=== PATIENT | male | born 1960 ===

== ENCOUNTER 2019-04-09 06:09 | Inpatient (IN) | payer OTHER ==
[2019-04-06 15:17] VITALS: BMI 25.8
[2019-04-09] MEDS ORDERED: BUPIVACAINE LIPOSOME/PF (EXPAREL) 266 MG/20 ML VIAL ONE ×2 (07:28→08:07)
[2019-04-09] MEDS ORDERED: THROMBIN (BOVINE) 5,000 UNIT VIAL TP ONE ×2 (07:29→11:51)
[2019-04-09] MEDS ORDERED: HEPARIN NA (PORCINE) 5,000 UNITS/ML 1ML VIAL ONE (07:29)
[2019-04-09] MEDS ORDERED: BENZOIN TINCTURE SWABSTICK TP ONE (07:29)
[2019-04-09] MEDS ORDERED: PROPOFOL 20 ML ONE ×8 (07:45→10:11)
[2019-04-09] MEDS ORDERED: MIDAZOLAM HCL 2 MG/2 ML SINGLE DOSE VIAL ONE ×2 (07:46)
[2019-04-09] MEDS ORDERED: KETAMINE HCL 200 MG/20 ML VIAL ONE (07:46)
[2019-04-09] MEDS ORDERED: SUCCINYLCHOLINE CHLORIDE 200 MG/10 ML SYRINGE ONE (07:50)
[2019-04-09] MEDS ORDERED: BUPIVACAINE HCL/PF 0.5% (5 MG/ML) 30 ML VIAL IJ ONE (08:07)
[2019-04-09] MEDS ORDERED: VANCOMYCIN 1,000 MG VIAL (RESTRICTED TO ID ONLY) ONE (08:49)
[2019-04-09] MEDS ORDERED: VANCOMYCIN 1,000 MG VIAL (RESTRICTED TO ID ONLY) IVPB ONE (09:00)
[2019-04-09] MEDS ORDERED: ceFAZolin SODIUM 1 GM VIAL IVPB ONE (09:30)
[2019-04-09] MEDS ORDERED: ROCURONIUM BROMIDE 50 MG/5 ML SYRINGE ONE (09:32)
[2019-04-09] MEDS ORDERED: TRANEXAMIC ACID 1000 MG/10 ML VIAL ONE ×2 (09:37→11:09)
[2019-04-09] MEDS ORDERED: NEOSTIGMINE METHYLSULFATE 0.5 MG/1 ML - 10 ML MDV ONE (10:26)
[2019-04-09] MEDS ORDERED: GLYCOPYRROLATE 0.2 MG/1 ML VIAL ONE (10:26)
[2019-04-09] MEDS ORDERED: HYDROmorphone HCl 2 MG/ML VIAL ONE (11:04)
[2019-04-09] MEDS ORDERED: DEXAMETHASONE SOD PHOSPHATE 4 MG/1 ML VIAL ONE (11:31)
[2019-04-09] MEDS ORDERED: ONDANSETRON 4 MG/2 ML VIAL ONE (11:31)
[2019-04-09] MEDS ORDERED: HEPARIN NA (PORCINE) 5,000 UNITS/ML 1ML VIAL SQ ONE (11:47)
[2019-04-09] MEDS ORDERED: GELATIN, ABSORBABLE 100 EACH SPONGE TP ONE (11:53)
--- NOTE | 2019-04-09 12:12 | PN ---
Progress Note (short form) - Note Progress Note: 58M s/p L4 bilateral laminectomies, bilateral L4/L5 facetectomies, L4-L5 PLIF & posterior instrumented spinal fusion POD #0. -Admit to ICU post-op. -Pain control: NO NSAID's; patient received pre-op TLIP block w/Exparel; OK to use AIR/OCEAN EXPORT CLERK if needed; transition to oral analgesia post-op. -DVT PPx: -Mechanical only: ASHWIN's, SCD's. -Chemical: None. -Incentive spirometry q15 min. -NPO until flatus. -Vinson care; d/c when ambulating. -Post-op Ancef x 3 doses. -PT/OT/Rehab, OOB. -WBAT B/L LE. -No bending, lifting (>5 lbs), or twisting for 9-12 months. -Care per ICU & medical hospitalist teams. -Discharge planning: f/u 7-10 days after rehab discharge at [facility] office; call for appointment; . -Will follow. Abdoul Asencio MD (Orthopaedic Surgery).
--- NOTE | 2019-04-09 12:18 | OP ---
Operative Note - Note: Operative Date: 04/09/19 Pre-Operative Diagnosis: 1. 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 2. L4-L5 spinal stenosis with neurogenic claudication. 3. Axial instability lumbar spine. SEVERITY OF ILLNESS: 4. Operation: 1. L4 Bilateral laminectomies. 2. Bilateral L4/L5 facetectomies. 3. L4-L5 PLIF & posterior instrumentation. 4. L4-L5 posterior arthrodesis. 5. Bone autograft. 6. Bone allograft. 7. Bone marrow aspirate concentrate autograft Implants: Cage: RTI Fortilink Tetrafuse [id number] Post-Operative Diagnosis: Same as Pre-op Surgeon: Abdoul Asencio Truant Officer: Alberto Asencio Anesthesiologist/PHYSICIAN INDUSTRIAL: Trung Coon Anesthesia: General, Local Specimens Removed: L4-L5 disc Estimated Blood Loss (mls): 300 Drains & Tubes with Location: 1 x superficial HemoVac Blood Volume Replaced (mls): 125 (Cell Saver) Fluid Volume Replaced (mls): 1,800 (Crystalloid) Operative Report Dictated: Yes
[2019-04-09] MEDS ORDERED: ONDANSETRON 4 MG/2 ML VIAL IVPUSH PRN (12:19)
[2019-04-09] MEDS ORDERED: diazePAM CARPU-JECT 10 MG/2 ML DISP.SYRIN IVPUSH PRN (12:19)
[2019-04-09] MEDS: LACTATED RINGERS SOLUTION 1,000 ML IV SCH ×2 (12:36→17:31)
[2019-04-09] MEDS ORDERED: oxyCODONE HCL 5 MG TABLET PO PRN ×2 (12:57)
[2019-04-09] MEDS: ACETAMINOPHEN 1000 MG/100 ML VIAL (NON FORMULARY) IVPB SCH ×2 (13:14→21:25)
[2019-04-09] MEDS: HYDROmorphone HCl 2 MG/ML VIAL IVPUSH PRN ×2 (13:35→13:50)
--- NOTE | 2019-04-09 13:44 | OP ---
DATE OF OPERATION: DATE OF DICTATION: 04/09/2019 SURGEON: Abdoul Asencio MD ENVIRONMENTAL SERVICES SPECIALIST: Alberto Asencio MD PREOPERATIVE DIAGNOSIS: Disk prolapse at L4-5 with associated spinal stenosis, segmental instability due to a grade 1 anterolisthesis L4-5. POSTOPERATIVE DIAGNOSIS: Disk prolapse at L4-5 with associated spinal stenosis, segmental instability due to a grade 1 anterolisthesis L4-5. OPERATIONS PERFORMED: 1. Laminectomy of L4 with undercutting facetectomy. 2. Diskectomy. 3. Anterior arthrodesis with bone graft. 4. Insertion of cage. 5. Pedicle screw instrumentation L4-5-S1 6. Posterolateral arthrodesis L4-5. 7. Complex wound closure. 8. Use of biplanar fluoroscopy and intraoperative neuromonitoring. 9. Use of bone marrow aspirate concentrate for stem cells. ANTIBIOTICS GIVEN: 2 g Keflex, 1 g vancomycin preoperative; 1 g Keflex given at the end of the procedure, 2 g of tranexamic acid utilized. DESCRIPTION OF PROCEDURE: Patient correctly identified. Imaging was available for intraoperative evaluation. Time-out was called. Patient was placed prone on the Zak table. All bony points padded appropriately. Pelvis extended as maximally as possible. The skin was prepped with Betadine scrub solution, wiped off with alcohol, DuraPrep applied. Window drape applied. Midline incision utilized. This gave easy access to the subfascial space of the tip of the spinous process of L2 down to the tip of the spinous process of L5 performed in order to gain easy access to the posterior elements. Retractors were placed to hold the soft tissues open. The correct levels for surgical intervention were identified using anatomical guidelines as well as lateral fluoroscopic x-ray. The lumbar L4 lamina was resected completely using Leksell rongeurs, Kerrison upcuts. The pars interarticularis was split longitudinally. The inferior facets were incised and imploded inwards. The superior facet of L5 was resected appropriately to free the entire neural complex of L3, 4, 5 both left and right hand side. Once this had been performed, the dura was retracted from right to left. Epidural veins were dealt with biplanar fluoroscopy. Using an 11 blade, an annulotomy was performed, and shaving up to size 12 was performed. Shaving enabled removal of all disk materials. Serrated curettes enabled endplate shaving so that ultimately a size 13 Fortilink spacer was inserted. The interbody bone grafting was with cancellous bone accordingly. Once had been performed, the pedicles of L4 and 5 were identified using anatomic guidelines. Lateral fluoroscopic x-ray guided the 4.5 drill, which was inserted into each pedicle. Each pedicle was palpated with a ball tip feeler, and the screws measured 6.5 x 45 mm. Each screw was then tested with intraoperative neuromonitoring, found to be completely within the parameters of safe zones, that is well above 20 mA of each screw. The 40-mm rods were placed into the tulips and the caps tightened appropriately. Torque device provided the final tightening. Once this had been performed, the muscle was gently retracted off the spinous processes. These had originally been dissected. The muscle had been dissected off the spinous process. This gave easy access to the intertransverse plane. Bone grafting 1st of all was a combination of allograft with expanded autograft chips at the interbody cage that was bone grafted in the posterior lumbar interbody fusion was that of autologous bone. The insertion of the intertransverse plane revealed a completely exposed bone bed appropriately, and the bone laid down onto the intertransverse plane accordingly. Closure after trimming of muscle, 1 Vicryl fascia, 1 Vicryl subcutaneous, 1 and 3-0 Vicryl skin, 3-0 Monocryl with Steri-Strips. Drainage, 1/8Hemovac superficially x1. No complications. Operation went extremely well. Postoperative x-rays were excellent. MD FRANCIA Thomson/[id number] MTDD
--- NOTE | 2019-04-09 16:04 | HP ---
CHIEF COMPLAINT: POD #0 after L4 bilateral laminectomies, bilateral L4/L5 facetectomies, L4-L5 PLIF & posterior instrumented spinal fusion. PCP: HISTORY OF PRESENT ILLNESS: This is a 58 year old male with PMH significant for DM. He was transferred to the ICU after elective L4 bilateral laminectomies, bilateral L4/L5 facetectomies , L4-L5 PLIF & posterior instrumented spinal fusion. He underwent surgery due to chronic back pain that initially began in 2012. 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 He underwent PT in 2012 for the back pain, with no help. The pain begins almost as soon as he starts to operate a forklift, and often lasts the entire day. He has also suffered work related B/L shoulder tears in 2004, for which he underwent 2 surgeries (2004,2006), with no improvement. He states that the pain is worse on abduction, but denies any numbness or tingling. Recent Travel: None PAST MEDICAL HISTORY: DM, on Metformin 1000mg BID since 2003 PAST SURGICAL HISTORY: Rt shoulder (2004, 2006) Neck, small mobile swelling on the left, was told it was non malignant () Social History: Smoking: Quit in August, smoked 1/2ppd for 40 years before that Alcohol: a few drinks/month Drugs: denies Allergies No Known Allergies Allergy (Verified 04/09/19 06:39) HOME MEDICATIONS: Home Medications Medication Instructions Recorded Dapagliflozin Propanediol [Farxiga] 10 mg PO DAILY 04/06/19 Metformin HCl [Glucophage] 1,000 mg PO BID 04/06/19 Pioglitazone HCl [Actos] 30 mg PO DAILY 04/06/19 Rosuvastatin Calcium [Crestor] 10 mg PO DAILY 04/06/19 REVIEW OF SYSTEMS CONSTITUTIONAL: Absent: fever, chills, diaphoresis, generalized weakness, malaise, loss of appetite, weight change HEENT: Absent: rhinorrhea, nasal congestion, throat pain, throat swelling, difficulty swallowing, mouth swelling, ear pain, eye pain, visual changes CARDIOVASCULAR: Absent: chest pain, syncope, palpitations, irregular heart rate, lightheadedness , peripheral edema RESPIRATORY: Absent: cough, shortness of breath, dyspnea with exertion, orthopnea, wheezing, stridor, hemoptysis GASTROINTESTINAL: Absent: abdominal pain, abdominal distension, nausea, vomiting, diarrhea, constipation, melena, hematochezia GENITOURINARY: Absent: dysuria, frequency, urgency, hesitancy, hematuria, flank pain, genital pain MUSCULOSKELETAL: back pain Absent: myalgia, arthralgia, joint swelling, neck pain SKIN: Absent: rash, itching, pallor HEMATOLOGIC/IMMUNOLOGIC: Absent: easy bleeding, easy bruising, lymphadenopathy, frequent infections ENDOCRINE: Absent: unexplained weight gain, unexplained weight loss, heat intolerance, cold intolerance NEUROLOGIC: Absent: headache, focal weakness or paresthesias, dizziness, unsteady gait, seizure, mental status changes, bladder or bowel incontinence PSYCHIATRIC: Absent: anxiety, depression, suicidal or homicidal ideation, hallucinations. PHYSICAL EXAMINATION Vital Signs - 24 hr 04/09/19 04/09/19 04/09/19 07:05 07:09 12:25 Temperature 98.1 F 98.4 F Pulse Rate 66 81 Respiratory 18 18 Rate Blood Pressure 127/78 108/67 O2 Sat by Pulse 96 100 Oximetry (%) 04/09/19 04/09/19 04/09/19 12:40 12:55 13:10 Temperature 98.5 F Pulse Rate 79 80 82 Respiratory 12 10 12 Rate Blood Pressure 109/66 110/69 114/67 O2 Sat by Pulse 100 100 100 Oximetry (%) 04/09/19 04/09/19 04/09/19 13:25 13:40 13:55 Temperature Pulse Rate 92 H 83 86 Respiratory 12 16 18 Rate Blood Pressure 115/68 107/67 107/64 O2 Sat by Pulse 100 100 100 Oximetry (%) 04/09/19 04/09/19 04/09/19 14:13 14:21 15:30 Temperature 98.5 F Pulse Rate 86 79 Respiratory 18 18 Rate Blood Pressure 108/61 107/66 O2 Sat by Pulse 100 Oximetry (%) GENERAL: AOx3, appears to be slightly drowsy HEAD: Normal with no signs of trauma. EYES: GLENN, EOMI EARS, NOSE, THROAT: Dry mucus membranes LUNGS: Breath sounds equal, clear to auscultation bilaterally. No wheezes, and no crackles. No accessory muscle use. HEART: Regular rate and rhythm, normal S1 and S2 without murmur, rub or gallop. ABDOMEN: Soft, nontender, not distended, no organomegaly UPPER EXTREMITIES: 2+ pulses, warm, unable to abduct arms due to shoulder pain LOWER EXTREMITIES: 2+ pulses, warm, no edema NEUROLOGICAL: Motor 5/5, sensations intact, CNII-XII intact PSYCHIATRIC: Cooperative. Good eye contact. Appropriate mood and affect. SKIN: Warm, dry, normal turgor, no rashes or lesions noted, normal capillary refill. Laboratory Results - last 24 hr 04/09/19 04/09/19 04/09/19 06:22 06:55 08:00 POC Glucometer 131 Blood Type A POSITIVE A POSITIVE Antibody Screen Negative ASSESSMENT/PLAN: POD #0 after L4 bilateral laminectomies, bilateral L4/L5 facetectomies, L4-L5 PLIF & posterior instrumented spinal fusion. #Ortho - 300ml blood loss, 125ml cell savers, 1.8L crystalloids administered - Analgesia: No NSAIDs; patient received pre-op TLIP block w/Exparel, PESTICIDE USE MEDICAL COORDINATOR if needed; transition to oral analgesia post-op. - PT/OT/Rehab, OOB. #Respiratory - Incentive spirometry q15 min. #ID -Post-op Ancef x 3 doses. #Renal - Vinson care; d/c when ambulating. #FEN - NPO until flatus #DVT PPx: - Mechanical only: ASHWIN's, SCD's. #Dispo - Monitor in ICU Visit type - Emergency Visit Emergency Visit: No - New Patient This patient is new to me today: Yes Date on this admission: 04/10/19 - Critical Care Critical Care patient: Yes Total Critical Care Time (in minutes): 41 Critical Care Statement: The care of this patient involved high complexity decision making to prevent further life threatening deterioration of the patient 's condition and/or to evaluate & treat vital organ system(s) failure or risk of failure. ATTENDING PHYSICIAN STATEMENT I saw and evaluated the patient. I reviewed the resident's note and discussed the case with the resident. I agree with the resident's findings and plan as documented. SUBJECTIVE: OBJECTIVE: ASSESSMENT AND PLAN:
[2019-04-09] MEDS: INSULIN SLIDING SCALE (NOVOLOG) 1 VIAL SQ SCH ×2 (16:52→21:35)
[2019-04-09] MEDS: oxyCODONE HCL 10 MG SUSTAINED ACTING TABLET PO SCH (21:25)
--- NOTE | 2019-04-09 21:49 | HP ---
Admitting History and Physical - Admission Chief Complaint: Back Pain History of Present Illness: This is a 58 y/o man with a PMHx of NIDDM, Chronic Back Pain (work related), Shoulder Injury (work related). Patient had elective surgery today s/p L4 Bilateral Laminectomies, Bilateral L4/L5 facetectomies, L4-L5 PLIF & Posterior Instrumental Spinal fusion. He underwent surgery due to chronic back pain that initially began in 2012. 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 He underwent PT in 2012 for the back pain, with no help. The pain begins almost as soon as he starts to operate a forklift, and often lasts the entire day. He has also suffered work related B/L shoulder tears in 2004, for which he underwent 2 surgeries (2004,2006), with no improvement. He states that the pain is worse on abduction. He reports back pain, numbness to bilateral great toes( chronic). Patient denies fever, chills, cough, dizziness, ÁLVAREZ, SOB, CP, AP, N/V/ D History Source: Patient Limitations to Obtaining History: No Limitations - Past Medical History Cardiovascular: Yes: Hyperlipdemia Musculoskeletal: Yes: Chronic low back pain Endocrine: Yes: Diabetes Mellitus - Past Surgical History Additional Past Surgical History: Lumbar Sx Right Shoulder Tear Repair x2 - Smoking History Smoking history: Former smoker Have you smoked in the past 12 months: Yes If you are a former smoker, when did you quit?: AUGUST 2018 - Alcohol/Substance Use Hx Alcohol Use: Yes ([facility] [address]) History of Substance Use: reports: None - Social History Usual Living Arrangement: Yes: With Spouse ADL: Independent History of Recent Travel: No Home Medications - Allergies Allergies/Adverse Reactions: Allergies Allergy/AdvReac Type Severity Reaction Status Date / Time No Known Allergies Allergy Verified 04/09/19 06:39 - Home Medications Home Medications: Ambulatory Orders Dapagliflozin Propanediol [Farxiga] 10 mg PO DAILY 04/06/19 Metformin HCl [Glucophage] 1,000 mg PO BID 04/06/19 Pioglitazone HCl [Actos] 30 mg PO DAILY 04/06/19 Rosuvastatin Calcium [Crestor] 10 mg PO DAILY 04/06/19 Family Medical History Family History: Unremarkable Review of Systems - Review of Systems Constitutional: reports: No Symptoms Eyes: reports: No Symptoms HENT: reports: No Symptoms Neck: reports: No Symptoms Cardiovascular: reports: No Symptoms Respiratory: reports: No Symptoms Gastrointestinal: reports: No Symptoms Genitourinary: reports: No Symptoms Breasts: reports: No Symptoms Reported Musculoskeletal: reports: Back Pain Integumentary: reports: No Symptoms Neurological: reports: No Symptoms Endocrine: reports: No Symptoms Hematology/Lymphatic: reports: No Symptoms Psychiatric: reports: No Symptoms Physical Examination Vital Signs: Vital Signs Temperature 98.7 F 04/09/19 17:13 Pulse Rate 75 04/09/19 20:31 Respiratory Rate 11 04/09/19 20:31 Blood Pressure 103/69 04/09/19 20:31 O2 Sat by Pulse Oximetry (%) 100 04/09/19 20:40 Constitutional: Yes: Well Nourished, No Distress, Calm Eyes: Yes: WNL, Conjunctiva Clear, EOM Intact, PERRL HENT: Yes: WNL, Atraumatic, Normocephalic Neck: Yes: WNL, Supple, Trachea Midline Cardiovascular: Yes: WNL, Regular Rate and Rhythm, S1, S2 Respiratory: Yes: WNL, Regular, CTA Bilaterally Gastrointestinal: Yes: Soft, Hypoactive Bowel Sounds ...Rectal Exam: Yes: Deferred Renal/: Yes: Vinson Present Breast(s): Yes: WNL Musculoskeletal: Yes: Back Pain Extremities: Yes: WNL Edema: No Peripheral Pulses WNL: Yes Neurological: Yes: Numbness Psychiatric: Yes: WNL, Alert, Oriented Problem List - Problems (1) S/P laminectomy with spinal fusion Code(s): Z98.1 - ARTHRODESIS STATUS (2) Diabetes mellitus Code(s): E11.9 - TYPE 2 DIABETES MELLITUS WITHOUT COMPLICATIONS (3) HLD (hyperlipidemia) Code(s): E78.5 - HYPERLIPIDEMIA, UNSPECIFIED Assessment/Plan This is a 58 y/o man with a PMHx of HLD, NIDDM, Chronic Back Pain (work related) , Shoulder Injury (work related). Admitted to ICU for elective back surgery secondary to Spinal Stenosis, s/p L4 Bilateral Laminectomies, Bilateral L4/L5 facetectomies, L4-L5 PLIF & Posterior Instrumental Spinal fusion. Plan: Admit to ICU Continue with Ortho Regimen Pain Management per Anesthesia Department Incentive spirometer DVT ppx, per Ortho BGMs Continue Actos and Crestor Hold Metformin for now Visit type - Emergency Visit Emergency Visit: No - New Patient This patient is new to me today: Yes Date on this admission: 04/09/19 - Critical Care Critical Care patient: Yes Total Critical Care Time (in minutes): 32 Critical Care Statement: The care of this patient involved high complexity decision making to prevent further life threatening deterioration of the patient 's condition and/or to evaluate & treat vital organ system(s) failure or risk of failure.
[2019-04-09] MEDS ORDERED: metFORMIN HCL 500 MG TABLET (FP) PO SCH (22:00)
[2019-04-10] MEDS: LACTATED RINGERS SOLUTION 1,000 ML IV SCH (00:30)
[2019-04-10] MEDS: ACETAMINOPHEN 1000 MG/100 ML VIAL (NON FORMULARY) IVPB SCH (04:44)
[2019-04-10] MEDS: INSULIN SLIDING SCALE (NOVOLOG) 1 VIAL SQ SCH ×4 (06:41→21:41)
[2019-04-10 07:01] LABS: HEMATOCRIT 37.9 % (35.4-49); HEMOGLOBIN 12.7 GM/dL (11.7-16.9); MCH 28.7 pg (25.7-33.7); MCHC 33.4 g/dl (32.0-35.9); MEAN CELL VOLUME 85.9 fl (80-96); MEAN PLT VOLUME 8.2 fl (7.5-11.1); PLATELET COUNT 184 K/MM3 (134-434); RBC 4.41 M/mm3 (4.00-5.60); RDW 14.6 % (11.9-15.9); WHITE BLOOD COUNT 11.8 K/mm3 (4.0-10.0)
[2019-04-10 07:34] LABS: BLOOD UREA NITROGEN 17.9 mg/dL (7-18); CALCIUM 8.3 mg/dL (8.5-10.1); CREATININE 0.8 mg/dL (0.55-1.3); POTASSIUM 4.1 mmol/L (3.5-5.1)
--- NOTE | 2019-04-10 08:43 | PN ---
Physical Exam: SUBJECTIVE: Patient seen and examined. No acute events overnight. Complaining of itchy back. Able to eat a bit last night. Passing gas. Denies CP, SOB. OBJECTIVE: Vital Signs Period Temp Pulse Resp BP Sys/Adorno Pulse Ox Last 24 Hr 98.2 F-98.7 F 66-92 10-18 103-117/60-81 98-100 GENERAL: The patient is awake, alert, and fully oriented, in no acute distress. LUNGS: Breath sounds equal, clear to auscultation bilaterally, no wheezes, no crackles, no accessory muscle use. HEART: Regular rate and rhythm, S1, S2 without murmur, rub or gallop. ABDOMEN: Soft, nontender, nondistended, normoactive bowel sounds, no guarding, no rebound, no hepatosplenomegaly, no masses. BACK: midline dressing in place over surgical site, bloody drainage EXTREMITIES: warm, well-perfused, no edema. NEUROLOGICAL: AOx3. Normal speech Laboratory Results - last 24 hr 04/09/19 04/09/19 04/09/19 08:00 16:48 21:33 WBC RBC Hgb Hct MCV MCH MCHC RDW Plt Count MPV Sodium Potassium Chloride Carbon Dioxide Anion Gap BUN Creatinine Est GFR (CKD-EPI)AfAm Est GFR (CKD-EPI)NonAf POC Glucometer 162 164 Random Glucose Calcium Blood Type A POSITIVE 04/10/19 04/10/19 04/10/19 05:15 05:15 06:38 WBC 11.8 H RBC 4.41 Hgb 12.7 Hct 37.9 MCV 85.9 MCH 28.7 MCHC 33.4 RDW 14.6 Plt Count 184 MPV 8.2 Sodium 137 Potassium 4.1 Chloride 106 Carbon Dioxide 24 Anion Gap 8 BUN 17.9 Creatinine 0.8 Est GFR (CKD-EPI)AfAm 112.53 Est GFR (CKD-EPI)NonAf 97.10 POC Glucometer 129 Random Glucose 127 H Calcium 8.3 L Blood Type Active Medications Generic Name Dose Route Start Last Admin Trade Name Freq PRN Reason Stop Dose Admin Diazepam 5 mg 04/09/19 12:19 Valium Injection - IVPUSH ONCE PRN BACK PAIN Hydromorphone HCl 0.5 mg 04/09/19 12:56 04/09/19 13:50 Dilaudid Vial - IVPUSH 0.5 mg [id number] PRN Administration PAIN LEVEL 6-10 Lactated Ringer's 1,000 mls @ 125 mls/hr 04/09/19 12:30 04/10/19 00:30 Lactated Ringers Solution IV 125 mls/hr ASDIR JESU Administration Insulin Aspart 1 vial 04/09/19 16:30 04/10/19 06:41 Novolog Vial Sliding Scale - SQ Not Given ACHS JESU Protocol Ondansetron HCl 4 mg 04/09/19 12:19 Zofran Injection IVPUSH Q6H PRN NAUSEA AND/OR VOMITING Oxycodone HCl 5 mg 04/09/19 12:57 Roxicodone - PO Q3H PRN PAIN LEVEL 1-5 Oxycodone HCl 10 mg 04/09/19 12:57 Roxicodone - PO Q3H PRN PAIN LEVEL 6-10 Oxycodone HCl 10 mg 04/09/19 22:00 04/09/19 21:25 Oxycontin - PO 04/12/19 12:57 10 mg BID JESU Administration Pioglitazone HCl 30 mg 04/10/19 10:00 Actos - PO DAILY@0700 [facility] Rosuvastatin Calcium 10 mg 04/10/19 22:00 Crestor - PO HS [facility] ASSESSMENT/PLAN: Derek Martin is a 58yM w PMHx DM after L4 bilateral laminectomies, bilateral L4/L5 facetectomies, L4-L5 PLIF & posterior instrumented spinal fusion POD#1 #Ortho - s/p L4 bilateral laminectomies, bilateral L4/L5 facetectomies, L4-L5 PLIF & posterior instrumented spinal fusion - monitor back drainage - PT #Neuro - Pain control: Valium, Dilaudid, Oxycodone PRN. No NSAIDs. #Cards - continue home crestor #Endo - hx DM - ISS - continue home piogitazone #Respiratory - Incentive spirometry #ID -Post-op Ancef x 3 doses #Renal - Vinson care; d/c when ambulating - I/O #FEN - no fluids - no electrolyte disturbances - DM diet #PPx - SCD #Dispo - transfer to m/s Visit type - Emergency Visit Emergency Visit: Yes ED Registration Date: 04/09/19 Care time: The patient presented to the Emergency Department on the above date and was hospitalized for further evaluation of their emergent condition. - New Patient This patient is new to me today: Yes Date on this admission: 04/10/19 - Critical Care Critical Care patient: Yes Total Critical Care Time (in minutes): 38 Critical Care Statement: The care of this patient involved high complexity decision making to prevent further life threatening deterioration of the patient 's condition and/or to evaluate & treat vital organ system(s) failure or risk of failure. ATTENDING PHYSICIAN STATEMENT I saw and evaluated the patient. I reviewed the resident's note and discussed the case with the resident. I agree with the resident's findings and plan as documented. SUBJECTIVE: OBJECTIVE: ASSESSMENT AND PLAN:
[2019-04-10] MEDS ORDERED: PT OWN MED DRAWER 7, Y5N ONE (09:08)
[2019-04-10] MEDS: oxyCODONE HCL 10 MG SUSTAINED ACTING TABLET PO SCH ×2 (09:13→21:42)
[2019-04-10] MEDS ORDERED: PIOGLITAZONE HCL 30 MG TABLET (FP) PO SCH (10:00)
[2019-04-10] MEDS ORDERED: PATIENT'S OWN MEDICATION (NON-FORMULARY) (Dapagliflozin Propanediol [Farxiga] 10 MG) PO SCH (10:00)
--- NOTE | 2019-04-10 10:02 | PN ---
Progress Note (short form) - Note Progress Note: Anesthesia Post Op Note Pt s/p GA w/ TLIP blocks for multiple level laminectomy Pt awake alert in bed Pt denies n/v; denies puritis cho in situ Pt reports good pain control on current regimen VSS no apparent anesthesia complications Giovanna Barahona.
--- NOTE | 2019-04-10 11:27 | PN ---
Teaching Attending Note Name of Resident: Harmeet Mcmullen ATTENDING PHYSICIAN STATEMENT I saw and evaluated the patient. I reviewed the resident's note and discussed the case with the resident. I agree with the resident's findings and plan as documented. SUBJECTIVE: Pt seen and examined in the ICU. Pain adequately controlled. No nausea or vomiting. No fevers or chills. Tolerating PO. OBJECTIVE: Vital Signs Period Temp Pulse Resp BP Sys/Adorno Pulse Ox Last 24 Hr 97.7 F-98.7 F 66-92 10-18 103-117/60-81 98-100 Intake & Output 04/07/19 04/08/19 04/09/19 04/10/19 23:59 23:59 23:59 23:59 Intake Total 1925 775 Output Total 1950 Balance -25 775 Weight 79.061 kg Gen: NAD at rest Heart: RRR Lung: decreased breath sounds at the bases Abd: soft, nontender Ext: no edema Drain with serosanguinous fluid CBC, BMP 04/10/19 05:15 04/10/19 05:15 Active Medications Diazepam (Valium Injection -) 5 mg IVPUSH ONCE PRN PRN Reason: BACK PAIN Insulin Aspart (Novolog Vial Sliding Scale -) 1 vial SQ [facility]; Protocol Last Admin: 04/10/19 06:41 Dose: Not Given Ondansetron HCl (Zofran Injection) 4 mg IVPUSH Q6H PRN PRN Reason: NAUSEA AND/OR VOMITING Oxycodone HCl (Roxicodone -) 5 mg PO Q3H PRN PRN Reason: PAIN LEVEL 1-5 Oxycodone HCl (Roxicodone -) 10 mg PO Q3H PRN PRN Reason: PAIN LEVEL 6-10 Last Admin: 04/10/19 10:56 Dose: 10 mg Oxycodone HCl (Oxycontin -) 10 mg PO BID [facility] Stop: 04/12/19 12:57 Last Admin: 04/10/19 09:13 Dose: 10 mg Pioglitazone HCl (Actos -) 30 mg PO DAILY@0700 [facility] Last Admin: 04/10/19 09:10 Dose: 30 mg Rosuvastatin Calcium (Crestor -) 10 mg PO [facility] ASSESSMENT AND PLAN: Lumbar Spinal Stenosis with Radiculopathy and Neurogenic Claudication s/p L4 Bilateral Laminectomies/L4-L5 PLIF POD #1 Hypercholesterolemia DM - pain control - incentive spirometry - PO as tolerated - d/c cho when OOB - rehab/PT - DVT prophylaxis - can monitor on floor
[2019-04-10] MEDS ORDERED: LACTATED RINGERS SOLUTION 1000 ML INFUS.BAG IV ONE ×2 (14:12→16:39)
--- NOTE | 2019-04-10 14:53 | PN ---
Progress Note (short form) - Note Progress Note: Alerted by nurse that patient became hypotensive (70s/40s) and bradycardic to the high 40s after being transferred from bed to wheelchair prior to being transferred to floors. Patient was mildly diaphoretic. Patient was able to ambulate back to bed with assistance from wheelchair. Stated that he felt ok. Given 1L LR bolus with improvement in BP and heart rate. EKG completed: NSR, vent rate 64bpm, QTc 427ms. No acute ischemic changes noted. Patient stable for transfer to Med/Surg. Bolus as needed for BP support PE: General: awake, alert, NAD Heart: Bradycardic, regular rhythm, S1, S1 normal Respiratory: CTA B/L, no accessory muscle use Neuro: normal speech, able to ambulate with assistance. Drain in place
--- NOTE | 2019-04-10 15:40 | PN ---
Physical Exam: SUBJECTIVE: Patient seen and examined at the bedside. offers no complaints, at bedside. OBJECTIVE: Patient is a 58 y/o man with a PMHx of NIDDM, chronic back pain, shoulder Injury. Patient is POD#1 L4 Bilateral Laminectomies, Bilateral L4/L5 facetectomies, L4-L5 PLIF & Posterior Instrumental Spinal fusion. Vital Signs Period Temp Pulse Resp BP Sys/Adorno Pulse Ox Last 24 Hr 98.2 F-99.7 F 50-82 11-20 70-117/50-81 96-100 GENERAL: The patient is awake, alert, and fully oriented, in no acute distress. HEAD: Normal with no signs of trauma. EYES: PERRL, extraocular movements intact, sclera anicteric, conjunctiva clear. No ptosis. ENT: Ears normal, nares patent, oropharynx clear without exudates, moist mucous membranes. NECK: Trachea midline, full range of motion, supple. LUNGS: Breath sounds equal, clear to auscultation bilaterally HEART: Regular rate and rhythm ABDOMEN: Soft, nontender, nondistended, normoactive bowel sounds, no guarding, no rebound, no hepatosplenomegaly, no masses. NEUROLOGICAL: Normal speech, gait not observed. PSYCH: Normal mood, normal affect. Laboratory Results - last 24 hr 04/09/19 04/09/19 04/10/19 16:48 21:33 05:15 WBC 11.8 H RBC 4.41 Hgb 12.7 Hct 37.9 MCV 85.9 MCH 28.7 MCHC 33.4 RDW 14.6 Plt Count 184 MPV 8.2 Sodium Potassium Chloride Carbon Dioxide Anion Gap BUN Creatinine Est GFR (CKD-EPI)AfAm Est GFR (CKD-EPI)NonAf POC Glucometer 162 164 Random Glucose Calcium 04/10/19 04/10/19 04/10/19 05:15 06:38 11:34 WBC RBC Hgb Hct MCV MCH MCHC RDW Plt Count MPV Sodium 137 Potassium 4.1 Chloride 106 Carbon Dioxide 24 Anion Gap 8 BUN 17.9 Creatinine 0.8 Est GFR (CKD-EPI)AfAm 112.53 Est GFR (CKD-EPI)NonAf 97.10 POC Glucometer 129 156 Random Glucose 127 H Calcium 8.3 L Active Medications Generic Name Dose Route Start Last Admin Trade Name Freq PRN Reason Stop Dose Admin Diazepam 5 mg 04/09/19 12:19 Valium Injection - IVPUSH ONCE PRN BACK PAIN Insulin Aspart 1 vial 04/09/19 16:30 04/10/19 11:36 Novolog Vial Sliding Scale - SQ Not Given ACHS [facility] Protocol Ondansetron HCl 4 mg 04/09/19 12:19 Zofran Injection IVPUSH Q6H PRN NAUSEA AND/OR VOMITING Oxycodone HCl 5 mg 04/09/19 12:57 04/10/19 15:30 Roxicodone - PO 5 mg Q3H PRN Administration PAIN LEVEL 1-5 Oxycodone HCl 10 mg 04/09/19 12:57 04/10/19 10:56 Roxicodone - PO 10 mg Q3H PRN Administration PAIN LEVEL 6-10 Oxycodone HCl 10 mg 04/09/19 22:00 04/10/19 09:13 Oxycontin - PO 04/12/19 12:57 10 mg BID JESU Administration Pioglitazone HCl 30 mg 04/10/19 10:00 04/10/19 09:10 Actos - PO 30 mg DAILY@0700 [facility] Administration Rosuvastatin Calcium 10 mg 04/10/19 22:00 Crestor - PO HS [facility] ASSESSMENT/PLAN: Problem List - Problems (1) S/P laminectomy with spinal fusion Assessment/Plan: post surgery care bowel regimen oob with physical therapy monitor in icu post op pain manangement incentive spirometer d/c planning Code(s): Z98.1 - ARTHRODESIS STATUS (2) Diabetes mellitus Assessment/Plan: on novolog ss, monitor bgms Code(s): E11.9 - TYPE 2 DIABETES MELLITUS WITHOUT COMPLICATIONS (3) HLD (hyperlipidemia) Assessment/Plan: continue home meds Code(s): E78.5 - HYPERLIPIDEMIA, UNSPECIFIED (4) Prophylactic measure Assessment/Plan: fen tolerating po monitor electrolytes low salt diet full code Code(s): Z29.9 - ENCOUNTER FOR PROPHYLACTIC MEASURES, UNSPECIFIED Visit type - Emergency Visit Emergency Visit: Yes ED Registration Date: 04/09/19 Care time: The patient presented to the Emergency Department on the above date and was hospitalized for further evaluation of their emergent condition. - New Patient This patient is new to me today: Yes Date on this admission: 04/10/19 - Critical Care Critical Care patient: Yes Total Critical Care Time (in minutes): 45 Critical Care Statement: The care of this patient involved high complexity decision making to prevent further life threatening deterioration of the patient 's condition and/or to evaluate & treat vital organ system(s) failure or risk of failure.
[2019-04-10] MEDS: LACTATED RINGERS SOLUTION 1,000 ML/1,000 ML INFUS.BAG IV SCH ×2 (18:28→23:09)
[2019-04-10] MEDS ORDERED: diazePAM CARPU-JECT 10 MG/2 ML DISP.SYRIN IVPUSH PRN (18:29)
[2019-04-10] MEDS ORDERED: ONDANSETRON 4 MG/2 ML VIAL IVPUSH PRN (18:29)
[2019-04-10] MEDS ORDERED: oxyCODONE HCL 5 MG TABLET PO PRN ×2 (18:29)
--- NOTE | 2019-04-10 20:00 | PN ---
Progress Note (short form) - Note Progress Note: POD #1 On the floor tried to walk but c/o balance disorder Minimal pain no leg pain Vitals as per chart CVS Stable RESP Clear ABD Soft passing flatus tolerating a diabetic diet cho in situ Wound dressing dry Drain pulled Neuro Motor sensory fully intact ASSESS Doing well PLAN PT mobilize D/C cho tomorrow Change dressing if necessary Pain mx D/C planning
[2019-04-10] MEDS ORDERED: ROSUVASTATIN CA 10 MG TABLET (FP) PO SCH ×2 (22:00)
[2019-04-11] MEDS ORDERED: PT OWN MED DRAWER 7, Y5N ONE (06:32)
[2019-04-11] MEDS: INSULIN SLIDING SCALE (NOVOLOG) 1 VIAL SQ SCH ×2 (06:39→11:36)
[2019-04-11] MEDS ORDERED: PIOGLITAZONE HCL 30 MG TABLET (FP) PO SCH (07:00)
[2019-04-11] MEDS: LACTATED RINGERS SOLUTION 1,000 ML/1,000 ML INFUS.BAG IV SCH (07:01)
[2019-04-11] MEDS: oxyCODONE HCL 10 MG SUSTAINED ACTING TABLET PO SCH (11:07)
--- NOTE | 2019-04-11 12:16 | EKG ---
Test Reason : Blood Pressure : / mmHG Vent. Rate : 064 BPM Atrial Rate : 064 BPM P-R Int : 192 ms QRS Dur : 084 ms QT Int : 414 ms P-R-T Axes : 027 020 023 degrees QTc Int : 427 ms NORMAL SINUS RHYTHM NORMAL ECG NO PREVIOUS ECGS AVAILABLE Confirmed by WILLIAM GARNETT MD ([id number]) on 04/11/2019 12:16:06 PM Referred By: POP GOETZ Confirmed By:WILLIAM GARNETT MD
[2019-04-11 12:54] LABS: BASO % 0.3 % (0-2.0); EOS % 0.5 % (0-4.5); HEMATOCRIT 36.2 % (35.4-49); HEMOGLOBIN 12.2 GM/dL (11.7-16.9); LYMPH % 9.3 % (8-40); MCH 28.8 pg (25.7-33.7); MCHC 33.6 g/dl (32.0-35.9); MEAN CELL VOLUME 85.6 fl (80-96); MONO % 8.7 % (3.8-10.2); NEUT % 81.2 % (42.8-82.8); PLATELET COUNT 160 K/MM3 (134-434); RBC 4.22 M/mm3 (4.00-5.60); RDW 14.9 % (11.9-15.9); WHITE BLOOD COUNT 9.8 K/mm3 (4.0-10.0)
[2019-04-11 13:22] LABS: ALBUMIN 2.8 g/dl (3.4-5.0); BILIRUBIN,TOTAL 0.9 mg/dL (0.2-1); BLOOD UREA NITROGEN 14.9 mg/dL (7-18); CREATININE 0.7 mg/dL (0.55-1.3); TOT PROT 5.7 g/dl (6.4-8.2)
--- NOTE | 2019-04-11 13:37 | PN ---
Progress Note (short form) - Note Progress Note: 58M s/p L4 bilateral laminectomies, bilateral L4/L5 facetectomies, L4-L5 PLIF & posterior instrumented spinal fusion POD #2. Pain well controlled. No acute events overnight. Pt. denies overnight history of headaches, chest pain, shortness of breath, nausea, vomiting, chills, & sweats. (+) Voiding; (+) Flatus; (-) BM. All labs and vitals reviewed. PE: AAO x 3, NAD. L-Spine: Incision, dressing C/D/I. B/L LE M: L2-S1 intact, minimum 4/5. B/L LE S: L2-S1 2/2. 58M s/p L4 bilateral laminectomies, bilateral L4/L5 facetectomies, L4-L5 PLIF & posterior instrumented spinal fusion POD #2. -Pain control: NO NSAID's. -DVT PPx: -Mechanical only: ASHWIN's, SCD's. -Chemical: None. -Incentive spirometry q15 min. -Diet as tolerated. -PT/OT/Rehab, OOB. -WBAT B/L LE. -Raised toilet seat. -No bending, lifting (>5 lbs), or twisting for 9-12 months. -Care per medical hospitalist team. -Discharge planning: home today; pain medication sent to patient's pharmacy; f/ u 7-10 days after discharge from [facility] office; call for appointment; . -Will follow. Alberto Asencio MD (Orthopaedic Surgery).
--- NOTE | 2019-04-11 13:41 | PATH ---
Surgical Pathology Report Patient Name: CHELA CHO Med. Rec. #: [id number] /Age/Gender: 1960 (Age: 58) / M Account: [id number] Location: [facility] MED/SURG Taken: 04/09/2019 Received: 04/09/2019 Reported: 04/11/2019 Physicians: Abdoul Asencio M.D. Specimen(s) Received DISC, L4-L5 Clinical History Spinal stenosis Final Diagnosis DISC, L4-L5, POSTERIOR LUMBAR INTERBODY FUSION: BENIGN INTERVERTEBRAL DISC TISSUE AND BONE. Electronically Signed Yaneli Johnson M.D. Gross Description Received fresh labeled "L4 and L5 disc," is a 1.5 x 1.4 x 0.2 cm aggregate of moon red fragments of fibrocartilaginous tissue. The specimen is entirely submitted in one cassette. /04/09/201904/09/2019
[2019-04-11 14:50] VITALS: BP 112/68; PULSE 90; TEMP 99
--- NOTE | 2019-04-11 17:27 | DS ---
Physical Exam: SUBJECTIVE: Patient seen and examined OBJECTIVE: Patient is a 58 y/o man with a PMHx of NIDDM, chronic back pain, shoulder Injury. Patient is POD#1 L4 Bilateral Laminectomies, Bilateral L4/L5 facetectomies, L4-L5 PLIF & Posterior Instrumental Spinal fusion. Vital Signs Period Temp Pulse Resp BP Sys/Adorno Pulse Ox Last 24 Hr 98.6 F-100.1 F 76-90 18-18 105-134/64-70 93 PHYSICAL EXAM GENERAL: The patient is awake, alert, and fully oriented, in no acute distress. HEAD: Normal with no signs of trauma. EYES: PERRL, extraocular movements intact, sclera anicteric, conjunctiva clear. No ptosis. ENT: Ears normal, nares patent, oropharynx clear without exudates, moist mucous membranes. NECK: Trachea midline, full range of motion, supple. LUNGS: Breath sounds equal, clear to auscultation bilaterally HEART: Regular rate and rhythm ABDOMEN: Soft, nontender, nondistended, normoactive bowel sounds, no guarding, no rebound, no hepatosplenomegaly, no masses. NEUROLOGICAL: Normal speech, gait not observed. PSYCH: Normal mood, normal affect. LABS Laboratory Results - last 24 hr 04/10/19 04/10/19 04/11/19 17:36 21:39 06:37 WBC RBC Hgb Hct MCV MCH MCHC RDW Plt Count MPV Absolute Neuts (auto) Neutrophils % Lymphocytes % Monocytes % Eosinophils % Basophils % Nucleated RBC % Sodium Potassium Chloride Carbon Dioxide Anion Gap BUN Creatinine Est GFR (CKD-EPI)AfAm Est GFR (CKD-EPI)NonAf POC Glucometer 130 144 104 Random Glucose Calcium Magnesium Total Bilirubin AST ALT Alkaline Phosphatase Total Protein Albumin 04/11/19 04/11/19 04/11/19 11:31 12:30 12:30 WBC 9.8 RBC 4.22 Hgb 12.2 Hct 36.2 MCV 85.6 MCH 28.8 MCHC 33.6 RDW 14.9 Plt Count 160 MPV 8.0 Absolute Neuts (auto) 7.9 Neutrophils % 81.2 Lymphocytes % 9.3 Monocytes % 8.7 Eosinophils % 0.5 Basophils % 0.3 Nucleated RBC % 0 Sodium 137 Potassium 4.0 Chloride 103 Carbon Dioxide 27 Anion Gap 6 L BUN 14.9 Creatinine 0.7 Est GFR (CKD-EPI)AfAm 118.88 Est GFR (CKD-EPI)NonAf 102.57 POC Glucometer 121 Random Glucose 156 H Calcium 8.0 L Magnesium 2.0 Total Bilirubin 0.9 AST 29 ALT 24 Alkaline Phosphatase 55 Total Protein 5.7 L Albumin 2.8 L HOSPITAL COURSE: Date of Admission:04/09/19 Date of Discharge: 04/11/19 Minutes to complete discharge: 60 Discharge Summary Problems reviewed: Yes Reason For Visit: SPINAL STENOSIS Condition: Stable - Instructions Diet, Activity, Other Instructions: Mr Martin: You had back surgery with Dr. Asencio. Here are your discharge instructions: -for Pain control: NO NSAID's (no motrin, no ibuprophen or aspirin) -use the Incentive spirometry q15 min. -continue a low salt diet -weight bear on both lower extremities as tolerated -Use a raised toilet seat. -No bending, lifting (>5 lbs), or twisting for 9-12 months. - pain medication sent to your pharmacy; f/u 7-10 days after discharge from [facility] office; call for appointment; . Thank you for allowing us to care for you. Referrals: Alberto Asencio MD [Staff Physician] - Disposition: HOME - Home Medications Comprehensive Discharge Medication List: Ambulatory Orders Dapagliflozin Propanediol [Farxiga] 10 mg PO DAILY 04/06/19 Metformin HCl [Glucophage] 1,000 mg PO BID 04/06/19 Pioglitazone HCl [Actos] 30 mg PO DAILY 04/06/19 Rosuvastatin Calcium [Crestor] 10 mg PO DAILY 04/06/19 Problem List - Problems (1) S/P laminectomy with spinal fusion Assessment/Plan: cleared by surgery for d/c home Code(s): Z98.1 - ARTHRODESIS STATUS (2) Diabetes mellitus Assessment/Plan: resume home meds Code(s): E11.9 - TYPE 2 DIABETES MELLITUS WITHOUT COMPLICATIONS (3) HLD (hyperlipidemia) Assessment/Plan: continue home meds Code(s): E78.5 - HYPERLIPIDEMIA, UNSPECIFIED (4) Prophylactic measure Assessment/Plan: discharge home Code(s): Z29.9 - ENCOUNTER FOR PROPHYLACTIC MEASURES, UNSPECIFIED This patient is new to me today: No Emergency Visit: Yes ED Registration Date: 04/09/19 Care time: The patient presented to the Emergency Department on the above date and was hospitalized for further evaluation of their emergent condition. Critical Care patient: No - Discharge Referral Referred to [facility] No
== END 2019-04-11 15:46 | disposition home or self-care (01) | DRG 304 ==
LOC: JSAMEDAYSX 06:09 → EDSTATUS 08:00 → JICU 13:14 → J8W 04-10 18:19
PROVIDERS: ADMIT Orthopaedic Surgery Orthopaedic Surgery of the Spine; ATTEND Nurse Practitioner Family
PROC: 0SG0071 Fusion of Lumbar Vertebral Joint with Autologous Tissue Substitute, Posterior Approach, Posterior Column, Open Approach (ICD-10-PCS; 2019-04-09)
PROC: 0ST20ZZ Resection of Lumbar Vertebral Disc, Open Approach (ICD-10-PCS; 2019-04-09)
PROC: B01BZZZ Fluoroscopy of Spinal Cord (ICD-10-PCS; 2019-04-09)
PROC: 07DR0ZZ Extraction of Iliac Bone Marrow, Open Approach (ICD-10-PCS; 2019-04-09)
PROC: 4A11X4G Monitoring of Peripheral Nervous Electrical Activity, Intraoperative, External Approach (ICD-10-PCS; 2019-04-09)
PROC: 0SG00AJ Fusion of Lumbar Vertebral Joint with Interbody Fusion Device, Posterior Approach, Anterior Column, Open Approach (ICD-10-PCS; principal; 2019-04-09 08:00)
DX: M48.062 Spinal stenosis, lumbar region with neurogenic claudication (principal); M51.16 Intervertebral disc disorders with radiculopathy, lumbar region; I95.9 Hypotension, unspecified; R00.1 Bradycardia, unspecified; E11.9 Type 2 diabetes mellitus without complications; Z79.84 Long term (current) use of oral hypoglycemic drugs; E78.5 Hyperlipidemia, unspecified
CPT/HCPCS: 36415; 72100-TC-FY; 76000-TC-FY; 80048; 80053; 82962; 83735; 85025; 85027; 86850; 86900; 86901; 88304-TC; 93005; 93010; 97116-GP; 97162-GP; J0131; J1644

== ENCOUNTER 2022-04-02 03:59 | Day surgery (SDC) | payer OTHER ==
[2022-04-01 10:51] VITALS: BMI 28.3
[2022-04-02] MEDS ORDERED: ONDANSETRON 4 MG/2 ML VIAL IVPUSH PRN (07:52)
[2022-04-02] MEDS ORDERED: ACETAMINOPHEN 1000 MG/100 ML BAG IVPB ONE ×2 (07:53→13:21)
[2022-04-02] MEDS ORDERED: LACTATED RINGERS SOLUTION 1,000 ML IV SCH (08:00)
[2022-04-02] MEDS ORDERED: DEXAMETHASONE SOD PHOSPHATE 4 MG/1 ML VIAL ONE (09:49)
[2022-04-02] MEDS ORDERED: ONDANSETRON 4 MG/2 ML VIAL ONE (09:49)
[2022-04-02] MEDS ORDERED: PROPOFOL 40 ML ONE (09:49)
[2022-04-02] MEDS ORDERED: LIDOCAINE HCL/PF 2% SDV 5ML VIAL ONE (09:50)
[2022-04-02] MEDS ORDERED: MIDAZOLAM HCL 2 MG/2 ML SINGLE DOSE VIAL ONE (09:50)
[2022-04-02] MEDS ORDERED: ROCURONIUM BROMIDE 50 MG/5 ML SYRINGE ONE (09:52)
[2022-04-02] MEDS ORDERED: ROPIVACAINE HCL 0.5% 30ML VIAL ONE (09:54)
[2022-04-02] MEDS ORDERED: ceFAZolin SODIUM 1 GM VIAL IVPB ONE (11:12)
[2022-04-02] MEDS ORDERED: ACETAMINOPHEN INJECTION 100 ML IVPB ONE (13:21)
[2022-04-02 16:42] VITALS: RESP 18
[2022-04-02 16:56] VITALS: BP 118/72; PULSE 72; TEMP 97.9
[2022-04-02] MEDS ORDERED: metFORMIN HCL 500 MG TABLET (FP) PO SCH (22:00)
[2022-04-03] MEDS ORDERED: ROSUVASTATIN CA 10 MG TABLET PO SCH (10:00)
[2022-04-03] MEDS ORDERED: PATIENT'S OWN MEDICATION (NON-FORMULARY) (Dapagliflozin Propanediol 10 MG Tablet) PO SCH (10:00)
[2022-04-03] MEDS ORDERED: PIOGLITAZONE HCL 15 MG TABLET PO SCH (10:00)
== END 2022-04-02 15:25 | disposition home or self-care (01) ==
LOC: JASU-SURG 03:59
PROVIDERS: ATTEND Orthopaedic Surgery Orthopaedic Surgery of the Spine
PROC: 0RNK0ZZ Release Left Shoulder Joint, Open Approach (ICD-10-PCS; 2022-04-02)
PROC: 0LM20ZZ Reattachment of Left Shoulder Tendon, Open Approach (ICD-10-PCS; 2022-04-02)
PROC: 0PBB0ZZ Excision of Left Clavicle, Open Approach (ICD-10-PCS; principal; 2022-04-02 09:00)
DX: M75.42 Impingement syndrome of left shoulder (principal); M75.102 Unspecified rotator cuff tear or rupture of left shoulder, not specified as traumatic
CPT/HCPCS: 82962; 88304-TC; 88311-TC; 94760